=== PATIENT | female | born 1960 | race Caucasian/White ===

== ENCOUNTER → 2016-07-01 | Outpatient (CLI) | payer BC ==
--- NOTE | 2016-07-02 09:56 | MAM ---
History: Well woman exam. Date of exam: 07/01/2016 Services provided: Bilateral full field digital screening mammography. CAD, the images were reviewed with R2 computer aided detection. FINDINGS: Glandular tissue is scattered glandular contour with increased mammographic density. Study is compared with films from 2014. Stable glandular distribution. No dominant mass, architectural distortion or clustered microcalcification. IMPRESSION: Benign exam Recommendation: Routine annual mammography BIRAD CATEGORY: 2 BENIGN Electronically signed by: Jonna Bear MD 07/02/2016 9:56 AM CDT
== END | disposition home or self-care (01) ==
LOC: MAMMO 10:50
PROVIDERS: ATTEND Family Medicine
DX: Z12.31 Encounter for screening mammogram for malignant neoplasm of breast (principal)

== ENCOUNTER → 2017-01-01 | Outpatient (CLI) | payer BC | END | disposition home or self-care (01) | LOC: GMAB 12:03 | PROVIDERS: ATTEND Family Medicine | DX: Z00.01 Encounter for general adult medical examination with abnormal findings (principal) ==

== ENCOUNTER → 2017-07-28 | Outpatient (CLI) | payer BC, MEDICARE ==
--- NOTE | 2017-07-28 11:14 | MAM ---
EXAM DESCRIPTION: 3D Screening BILATERAL : Digital Mammography. CLINICAL HISTORY: 56 years Female ANNUAL SCREENING . No complaints. Remote family history of breast cancer. Postmenopausal. Has taken HRT less than 5 years ago.. COMPARISON: 2-D digital screening bilateral study 07/01/2016. Report from prior examination also reviewed. TECHNIQUE: Bilateral CC and MLO projection full-field images, 3-D tomosynthesis digital mammographic technique. Also bilateral synthesized CC/ MLO full-field images. CAD not utilized. FINDINGS: The breast parenchymal density pattern is: Heterogeneously dense breast tissue, which may obscure small masses. No skin thickening or nipple retraction bilateral axillary lymph nodes. Bilateral solitary microcalcifications. No focal, stellate mass or density, focal asymmetry , and no suspicious microcalcifications bilaterally. Stable mammograms compared to prior study, taking into account differences in mammographic technique IMPRESSION: BI-RADS CATEGORY: 2 - BENIGN FINDINGS. FOLLOW UP: Routine digital bilateral screening, one year interval from July 2017. Written communication explaining the IMPRESSION and follow-up, will be mailed to the patient and referring health care provider. According to the [employer], yearly mammograms are recommended starting at age 40 and continuing as long as a woman is in good health. Any breast change noted on a breast self-exam should be reported promptly to the patient's healthcare provider. Breast MRI is recommended for women with an approximately 20-25% or greater lifetime risk of breast cancer, including women with a strong family history of breast or ovarian cancer and women who have been treated for Hodgkin's disease. A negative mammographic report should not delay tissue diagnosis in patients with significant clinical history or physical findings. Extremely dense breast tissue limits the sensitivity of digital mammography. Electronically signed by: Nitin Lopez MD 07/28/2017 11:13 AM CDT
== END ==
LOC: MAMMO 09:00
PROVIDERS: ATTEND Family Medicine
DX: Z12.31 Encounter for screening mammogram for malignant neoplasm of breast (principal)

== ENCOUNTER → 2017-12-28 | Outpatient (CLI) | payer MEDICARE | LOC: GMAE 10:35 | PROVIDERS: ATTEND Family Medicine | DX: I51.7 Cardiomegaly (principal); R06.02 Shortness of breath; E03.9 Hypothyroidism, unspecified ==

== ENCOUNTER → 2018-10-26 | Outpatient (CLI) | payer OTHER ==
--- NOTE | 2018-10-28 17:03 | MAM ---
EXAM DESCRIPTION: 3D Screening BILATERAL : Digital Mammography. CLINICAL HISTORY: 57 years Female ANNUAL SCREENING . No complaints. No personal history of breast cancer. Remote family history of breast and ovarian cancer. Childbirth. Postmenopausal 25+ years. HRT less than 5 years ago. Lifetime risk of developing breast cancer (Tyrer-Cuzick model)(%): 10.2. COMPARISON: Bilateral screening digital breast tomosynthesis 07/28/2017. 2-D digital screening bilateral study 07/01/2016. TECHNIQUE: Bilateral CC and MLO projection full-field images, digital tomosynthesis mammographic technique. Bilateral digital 2-D full-field MLO images. CAD not available for tomosynthesis or 2-D images. FINDINGS: The breast parenchymal density pattern is: Heterogeneously dense breast tissue, which may obscure small masses. No skin thickening or nipple retraction. Electronic ophthalmic medical technologist is obscuring the part of the left axilla and the superior left pectoral muscle on the MLO image. Not present on the prior studies. Right axillary lymph nodes. Bilateral solitary microcalcifications. No new focal, stellate mass or density, focal asymmetry , and no suspicious microcalcifications bilaterally. IMPRESSION: Benign exam. BIRAD CATEGORY: 2 BENIGN FINDINGS. RECOMMENDATIONS: FOLLOW UP: Routine digital bilateral mammographic screening, one year interval from October 2018. Written communication explaining the IMPRESSION and follow-up, will be mailed to the patient and referring health care provider. According to the [employer], yearly mammograms are recommended starting at age 40 and continuing as long as a woman is in good health. Any breast change noted on a breast self-exam should be reported promptly to the patient's healthcare provider. Breast MRI is recommended for women with an approximately 20-25% or greater lifetime risk of breast cancer, including women with a strong family history of breast or ovarian cancer and women who have been treated for Hodgkin's disease. A negative mammographic report should not delay tissue diagnosis in patients with significant clinical history or physical findings. Extremely dense breast tissue limits the sensitivity of digital mammography. Electronically signed by: Nitin Lopez MD 10/28/2018 5:02 PM CDT
== END ==
LOC: MAMMO 11:10
PROVIDERS: ATTEND Family Medicine
DX: Z12.31 Encounter for screening mammogram for malignant neoplasm of breast (principal)

== ENCOUNTER → 2019-01-03 | Outpatient (CLI) | payer OTHER | LOC: LAB.O 12:33 | PROVIDERS: ATTEND Internal Medicine Interventional Cardiology | DX: I50.9 Heart failure, unspecified (principal) ==

== ENCOUNTER → 2019-01-21 | Outpatient (CLI) | payer OTHER ==
--- NOTE | 2019-01-21 17:14 | RAD ---
EXAM: XR Right Wrist Complete, 3 or More Views CLINICAL HISTORY: PAIN IN RIGHT WRIST TECHNIQUE: Frontal, lateral and oblique views of the right wrist. COMPARISON: No relevant prior studies available. FINDINGS: Limitations: None. Bones/joints: There is an intra-articular fracture of the radial metaphysis with slight impaction and mild dorsal tilt. There is one or 2 mm of depression of the articular surface. There is a nondisplaced fracture of the ulnar styloid. Trabecular pattern and cortical surfaces of the scaphoid are intact. No dislocation. Soft tissues: Periarticular swelling noted. No radiopaque foreign body. IMPRESSION: Fractures of the ulnar styloid and distal radius as above. Electronically signed by: Louise Schmitt MD 01/21/2019 5:12 PM CDT
== END ==
LOC: RAD 16:33
PROVIDERS: ATTEND Nurse Practitioner Family
DX: S52.614A Nondisplaced fracture of right ulna styloid process, initial encounter for closed fracture (principal); S52.501A Unspecified fracture of the lower end of right radius, initial encounter for closed fracture

== ENCOUNTER → 2019-02-09 | Outpatient (CLI) | payer OTHER | LOC: GMAE 10:36 | PROVIDERS: ATTEND Family Medicine | DX: E03.9 Hypothyroidism, unspecified (principal); E78.2 Mixed hyperlipidemia; I10 Essential (primary) hypertension ==

== ENCOUNTER → 2019-11-14 | Outpatient (CLI) | payer OTHER ==
--- NOTE | 2019-11-15 19:30 | MAM ---
EXAM DESCRIPTION: 3D Screening BILATERAL : Digital Mammography. CLINICAL HISTORY: 58 years Female SCREENING . No complaints. Remote family history of breast and ovarian cancer. Menarche age 10. Childbirth age 32. Menopause age unknown. HRT more than 5 years ago.. Lifetime risk of developing breast cancer (Tyrer-Cuzick model)(%): 10.0. COMPARISON: Bilateral screening digital breast tomosynthesis October 2018 and July 2017. TECHNIQUE: Bilateral CC and MLO projection full-field images, digital tomosynthesis mammographic technique. Bilateral digital 2-D full-field MLO images. CAD available for 2-D images. FINDINGS: The breast parenchymal density pattern is: Heterogeneously dense breast tissue, which may obscure small masses. No skin thickening or nipple retraction. Solitary microcalcifications. Electronic medical charge entry specialist superimposed over the left breast axillary tail and upper left pectoral muscle. Benign type microcalcifications and a group in the right breast stable. No new focal, stellate mass or density, focal asymmetry , and no suspicious microcalcifications . Stable mammograms compared to prior study. IMPRESSION: Benign exam. BIRAD CATEGORY: 2 BENIGN FINDINGS. RECOMMENDATIONS: FOLLOW UP: Routine digital bilateral mammographic screening, one year interval from October 2019. Written communication explaining the IMPRESSION and follow-up, will be mailed to the patient and referring health care provider. According to the [employer], yearly mammograms are recommended starting at age 40 and continuing as long as a woman is in good health. Any breast change noted on a breast self-exam should be reported promptly to the patient's healthcare provider. Breast MRI is recommended for women with an approximately 20-25% or greater lifetime risk of breast cancer, including women with a strong family history of breast or ovarian cancer and women who have been treated for Hodgkin's disease. A negative mammographic report should not delay tissue diagnosis in patients with significant clinical history or physical findings. Extremely dense breast tissue limits the sensitivity of digital mammography. Electronically signed by: Nitin Lopez MD 11/15/2019 7:28 PM CDT
== END | disposition home or self-care (01) ==
LOC: MAMMO 11:58
PROVIDERS: ATTEND Family Medicine
DX: Z12.31 Encounter for screening mammogram for malignant neoplasm of breast (principal)

== ENCOUNTER → 2020-02-20 | Outpatient (CLI) | payer OTHER | LOC: GMAE 10:35 | PROVIDERS: ATTEND Family Medicine | DX: E78.2 Mixed hyperlipidemia (principal); E03.9 Hypothyroidism, unspecified; Z79.899 Other long term (current) drug therapy; I10 Essential (primary) hypertension ==